=== PATIENT | male | born 2005 | race Caucasian/White ===

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

== ENCOUNTER 2025-02-07 06:44 | Emergency (ER) | payer OTHER, SELFPAY ==
--- NOTE | 2025-02-07 07:18 | ER ---
Nurse's Notes [facility] Name: Tony Griffiths Age: 19 yrs Sex: Male : 2005 Arrival Date: 02/07/2025 Time: 06:44 Bed 19 Private MD: Diagnosis: Pharyngitis Presentation: 02/07 07:07 Chief complaint: Sore throat that radiates to left face x 1 week. Coronavirus screen: hb At this time, the client does not indicate any symptoms associated with coronavirus-19. Ebola Screen: No symptoms or risks identified at this time. Initial Sepsis Screen: Does the patient meet any 2 criteria? No. Patient's initial sepsis screen is negative. Does the patient have a suspected source of infection? No. Patient's initial sepsis screen is negative. Risk Assessment: Do you want to hurt yourself or someone else? Patient reports no desire to harm self or others. Onset of symptoms was January 31, 2025. 07:07 Method Of Arrival: Ambulatory hb 07:07 Acuity: KHANH 4 hb Historical: - Allergies: 07:05 Albuterol (Refill); ll1 - PMHx: 07:05 Tachycardia; ll1 - Immunization history:: Adult Immunizations up to date. - Infectious Disease History:: Denies. - Social history:: Smoking status: Patient denies any tobacco usage or history of. Screenin:25 [facility] ED Fall Risk Assessment (Adult) History of falling in the last 3 months, ll1 including since admission No falls in past 3 months (0 pts) Confusion or Disorientation No (0 pts) Intoxicated or Sedated No (0 pts) Impaired Gait No (0 pts) Mobility Assist Device Used No (0 pt) Altered Elimination No (0 pt) Score/Fall Risk Level 0 - 2 = Low Risk Maintained a safe environment, Hourly rounding (assess needs \T\ fall precautionary measures) done. Abuse screen: Denies threats or abuse. Nutritional screening: No deficits noted. Tuberculosis screening: No symptoms or risk factors identified. Assessment: 07:23 General: Appears in no apparent distress. Behavior is calm, cooperative, appropriate ll1 for age. Pain: Complains of pain in throat Quality of pain is described as aching. Neuro: Reports headache weakness. Respiratory: Airway is patent Respiratory effort is even, unlabored, Breath sounds are clear bilaterally. EENT: Throat is reddened has enlarged tonsils bilaterally. Vital Signs: 07:07 BP 118 / 92; Pulse 60; Resp 16; Temp 98; Pulse Ox 100% ; Weight 81.65 kg; Height 6 ft. hb 6 in. ; Pain 5/10; 07:24 BP 117 / 76; Pulse 53; Resp 16; Pulse Ox 99% on R/A; ll1 07:07 Body Mass Index 20.80 (81.65 kg, 198.12 cm) - Percentile 23.4 % hb 07:07 Pain Scale: Adult hb ED Course: 07:01 Patient arrived in ED. gm2 07:04 Goran Hernandez MD is Attending Physician. sp3 07:05 Arm band placed on Patient placed in an exam room, on a stretcher. ll1 07:08 Triage completed. hb 07:25 Patient has correct armband on for positive identification. Bed in low position. ll1 Provided Education on: finish all prescribed antibiotics. Cardiac monitoring not applicable on this patient. 07:25 No provider procedures requiring assistance completed. Patient did not have IV access ll1 during this emergency room visit. Administered Medications: No medications were administered Medication: 07:26 VIS not applicable for this client. ll1 Outcome: 07:17 Discharge ordered by . sp3 07:25 Discharged to home ambulatory, 1 07:25 Condition: stable 07:25 Discharge instructions given to patient, Instructed on discharge instructions, follow up and referral plans. medication usage, Demonstrated understanding of instructions, follow-up care, medications, Prescriptions given X 2, 07:26 Patient left the ED. 1 Signatures: Carline Mcmillan RN RN Jairo Bailey RN RN 1 Goran Hernandez MD MD sp3 Nicole John 2 Corrections: (The following items were deleted from the chart) 07:25 07:07 Acuity: KHANH 3 hb hb
--- NOTE | 2025-02-07 07:18 | EDPHYS ---
Physician Documentation [facility] Name: Tony Griffiths Age: 19 yrs Sex: Male : 2005 Arrival Date: 02/07/2025 Time: 06:44 Bed 19 Private MD: ED Physician Goran Hernandez HPI: 02/07 07:15 This 19 yrs old Black Male presents to ER via Ambulatory with complaints of Sore sp3 Throat, Jaw Pain. 07:15 19-year-old male with no past medical history presents with sore throat for the last 3 sp3 to 4 days. Reports redness. Denies fever, headache, sinus pain, cough, congestion, chest pain, shortness of breath, or any other signs or symptoms on ROS at this time.. Historical: - Allergies: 07:05 Albuterol (Refill); ll1 - PMHx: 07:05 Tachycardia; ll1 - Immunization history:: Adult Immunizations up to date. - Infectious Disease History:: Denies. - Social history:: Smoking status: Patient denies any tobacco usage or history of. ROS: 07:16 Constitutional: Negative for fever, chills, and weight loss, Eyes: Negative for injury, sp3 pain, redness, and discharge, Neck: Negative for injury, pain, and swelling, Cardiovascular: Negative for chest pain, palpitations, and edema, Respiratory: Negative for shortness of breath, cough, wheezing, and pleuritic chest pain, Abdomen/GI: Negative for abdominal pain, nausea, vomiting, diarrhea, and constipation, Back: Negative for injury and pain, MS/Extremity: Negative for injury and deformity, Skin: Negative for injury, rash, and discoloration, Neuro: Negative for headache, weakness, numbness, tingling, and seizure, Psych: Negative for depression, anxiety, suicide ideation, homicidal ideation, and hallucinations, Allergy/Immunology: Negative for hives, rash, and allergies, Endocrine: Negative for neck swelling, polydipsia, polyuria, polyphagia, and marked weight changes, 07:16 All other systems are negative, Exam: 07:16 Constitutional: This is a well developed, well nourished patient who is awake, alert, sp3 and in no acute distress. Head/Face: Normocephalic, atraumatic. Eyes: Pupils equal round and reactive to light, extra-ocular motions intact. Lids and lashes normal. Conjunctiva and sclera are non-icteric and not injected. Cornea within normal limits. Periorbital areas with no swelling, redness, or edema. Neck: Trachea midline, no thyromegaly or masses palpated, and no cervical lymphadenopathy. Supple, full range of motion without nuchal rigidity, or vertebral point tenderness. No Meningismus. Chest/axilla: Normal chest wall appearance and motion. Nontender with no deformity. No lesions are appreciated. Cardiovascular: Regular rate and rhythm with a normal S1 and S2. No gallops, murmurs, or rubs. Normal PMI, no JVD. No pulse deficits. Respiratory: Lungs have equal breath sounds bilaterally, clear to auscultation and percussion. No rales, rhonchi or wheezes noted. No increased work of breathing, no retractions or nasal flaring. Abdomen/GI: Soft, non-tender, with normal bowel sounds. No distension or tympany. No guarding or rebound. No evidence of tenderness throughout. Back: No spinal tenderness. No costovertebral tenderness. Full range of motion. Skin: Warm, dry with normal turgor. Normal color with no rashes, no lesions, and no evidence of cellulitis. MS/ Extremity: Pulses equal, no cyanosis. Neurovascular intact. Full, normal range of motion. Neuro: Awake and alert, GCS 15, oriented to person, place, time, and situation. Cranial nerves II-XII grossly intact. Motor strength 5/5 in all extremities. Sensory grossly intact. Cerebellar exam normal. Normal gait. 07:16 ENT: Erythema noted in the posterior oropharynx along with inflammatory changes.. Vital Signs: 07:07 BP 118 / 92; Pulse 60; Resp 16; Temp 98; Pulse Ox 100% ; Weight 81.65 kg; Height 6 ft. hb 6 in. ; Pain 5/10; 07:24 BP 117 / 76; Pulse 53; Resp 16; Pulse Ox 99% on R/A; ll1 07:07 Body Mass Index 20.80 (81.65 kg, 198.12 cm) - Percentile 23.4 % hb 07:07 Pain Scale: Adult hb MDM: 07:04 Medical Screening Exam initiated sp3 07:16 Data reviewed: vital signs, nurses notes. ED course: Clinically I ruled out sepsis, sp3 shock, peritonsillar abscess, patient has probable pharyngitis. We will treat with oral antibiotics and anti-inflammatories. Patient declined Decadron IM. We will discharge to PCP follow-up.. Administered Medications: No medications were administered Disposition Summary: 02/07/25 07:17 Discharge Ordered Notes: Location: Home sp3 Condition: Stable sp3 Diagnosis - Pharyngitis sp3 Followup: sp3 - With: Private Physician - When: Upon discharge from the Emergency Department - Reason: Continuance of care Discharge Instructions: - Discharge Summary Sheet hb - Pharyngitis sp3 Forms: - School release form hb - Work release form hb - Medication Reconciliation Form sp3 - Antibiotic Education sp3 - Prescription Opioid Use sp3 - Patient Portal Instructions sp3 - Leadership Thank You Letter sp3 Prescriptions: - Augmentin 875-125 mg Oral tablet - take 1 tablet ORAL route every 12 hours for 7 days; 14 tablet; Refills: 0, sp3 Product Selection Permitted - Ibuprofen 600 mg Oral Tablet - take 1 tablet ORAL route every 6 hours As needed take with food; 30 tablet; sp3 Refills: 0, Product Selection Permitted Signatures: Carline Mcmillan, RN RN Jairo Bailey RN RN [facility] Goran Hernandez MD MD sp3
[2025-02-07 07:52] VITALS: BP 117/76; TEMP 98; O2SAT 99
== END 2025-02-07 07:26 | disposition home or self-care (01) ==
LOC: ER 06:44
DX: J02.9 Acute pharyngitis, unspecified (principal)
CPT/HCPCS: 99283